=== PATIENT | male | born 1930 | race Caucasian/White ===

== ENCOUNTER → 2017-07-02 | Outpatient (CLI) | payer MEDICARE, OTHER ==
[2016-10-26 15:19] VITALS: BP 139/58
[~2017-07-02] MED LIST: ASPI-482 PO; ATOR40TA59 PO; CARV25TA2 PO; FENO160T PO; GABA-586 PO; HYDR-971 PO; ISOS30TA4 PO; RANI150C PO; VALS160T3 PO
--- NOTE | 2017-07-02 14:56 | RAD ---
CT head without contrast 07/02/2017 Clinical indication: Headaches. Comparison: CT head October 22, 2016 Technique: Multiple noncontrast CT images of the head were obtained into standard protocol. RS Compliance Statement: One or more of the following individualized dose reduction techniques were utilized for this examination: 1. Automated exposure control 2. Adjustment of the mA and/or kV according to patient size 3. Use of iterative reconstruction technique Head findings: There is stable mild prominence of the ventricles and subarachnoid spaces compatible with mild age-related and delusional changes. Patchy supratentorial hemispheric white matter low attenuation compatible with moderate nonspecific white matter disease. No acute intracranial hemorrhage or extra-axial fluid collection. The basal cisterns are patent falcon-white matter interfaces are otherwise maintained. No midline shift. There is mild left maxillary sinus mucosal thickening with adjacent maxillary sinus wall thickening. Impression: 1. No acute intracranial hemorrhage. 2. 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 3. Chronic left maxillary sinusitis.
== END | disposition home or self-care (01) ==
LOC: CT 10:03
PROVIDERS: ATTEND Internal Medicine
DX: J32.0 Chronic maxillary sinusitis (principal); G31.9 Degenerative disease of nervous system, unspecified; R90.82 White matter disease, unspecified; R51 Headache
CPT/HCPCS: 70450